=== PATIENT | female | born 1965 | race Caucasian/White ===

== ENCOUNTER 2021-01-11 06:33 | Day surgery (SDC) | payer BC ==
[~2021-01-11] VITALS: Ht 175.3 cm; Wt 76.6 kg
--- NOTE | ~2021-01-11 | HEMODYNAMI ---
PATIENT:CÉSAR PAULSON MEDICAL RECORD: [id number] : 65 LOCATION:D.CAT ADMISSION DATE: 01/11/21 Generatedon::24 Patient name: CÉSAR PAULSON Patient #: [id number] SSN: [id number] : 1965 Date of study: 01/11/2021 Page: Of Hemodynamic Procedure Report Patient Data Patient Demographics Procedure consent was obtained First Name: CÉSAR Gender: Female Last Name: KHURRAM : 1965 [facility] Initial: MEIR Age: 55 year(s) Patient #: [id number] Race: SSN: [id number] Additional ID: [id number] Contact details [address]: [address] [place] [address] State: [place] City: [place] Zip code: [address] Past Medical History Allergies: No known allergies Admission Admission Data Admission Date: 01/11/2021 Admission Time: 6:33 Arrival Date: 01/11/2021 Arrival Time: 0:00 Admit Source: Other Insurance Payor: Private health insurance [facility] #: [id number] Height (in.): 69 BSA: 1.94 (m2) Height (cm.): 175.26 BMI: 25.4 (kg/m2) Weight (lbs.): 172 Weight (kg.): 78.02 Lab Results Lab Result Date: 01/11/2021 Lab Result Time: 0:00 Biochemistry Name Units Result Min Max BUN mg/dl 18 --(---*)-- 7 18 Creatinine mg/dl 1.2 --(---*)-- 0.6 1.3 eGFR ml/min 49 *-(----)-- 90 120 NONAFRICAN CBC Name Units Result Min Max Hematocrit % 45.7 --(-*--)-- 42 54 Hemoglobin g/dl 15.7 --(--*-)-- 13.5 17.5 Procedure Procedure Types Cath Procedure Diagnostic Procedure [facility] w/Coronaries Sedation Charges Moderate Sedation 10-24 minutes Procedure Description Procedure Date Procedure Date: 01/11/2021 Procedure Start Time: 8:11 Procedure End Time: 8:22 Procedure Staff Name Function Thierno Jerome MD Performing Physician Consuelo Chen RN Nurse Susy Ware RT Monitor Eileen Broussard RT Scrub Procedure Data Cath Procedure Fluoroscopy Diagnostic fluoroscopy Total fluoroscopy Time: 2 time: 2 min min Diagnostic fluoroscopy Total fluoroscopy dose: 504 dose: 504 mGy mGy Contrast Material Contrast Material Type Amount (ml) Isovue 370 59 Entry Location Entry Primary Successful Side Size Upsize Upsize Entry Closure [place] ccessful Closure Location (Fr) 1 (Fr) 2 (Fr) Remarks Device Remarks Radial Right 6 Fr Mechanical artery Short Compression Estimated blood loss: 5 ml Diagnostic catheters Device Type Used For End Catheter Placement DIAGNOSTIC Hyden 110cm 5 Procedure Fr catheter ([id number]) Procedure Complications No complications Procedure Medications Medication Administration Route Dosage Oxygen etCO2 Nasal cannula 2 l/min Lidocaine 2% added to field 20 Heparin Flush Bag added to field 2 bags (1000units/500ml NS) 0.9% NaCl I.V. 100 ml/hr Radial Cocktail I.A. 1 syringe (Verapamil 2mg/Nitro 400mcg/Heparin 1500units) Versed I.V. 1 mg Fentanyl I.V. 50 mcg Versed I.V. 1 mg Fentanyl I.V. 50 mcg Versed I.V. 1 mg Hemodynamics Rest BSA: 1.94 (m2) HGB: 15.7 (g/dl) O2 Consumption: Estimated: 183.72 (ml/min) O2 Co nsumption indexed: Estimated:94.7 (ml/min/m) Heart Rate: 66 (bpm) Pressure Samples Time Site Value (mmHg) Purpose Heart Use Rate(bpm) 8:15 LV 93/0,8 Snapshot 70 Gradients Valve Time Site Site Mean SEP/DFP Peak To Heart Use 1 2 (mmHg) (sec/min) Peak Rate (mmHg) (bpm) Aortic 8:15 LV AO 70 Snapshots Pre Cath Intra NCS Post Cath Vital Signs Time Heart Resp SPO2 etCO2 NIBP Rhythm Pain Sedation Rate (ipm) (%) (mmHg) (mmHg) Status Level (bpm) 7:56:55 63 19 98 33.6 106/77(87) NSR 0 (11) 10(A) , No pain 8:01:01 64 15 98 37.3 105/70(88) NSR 0 (11) 10(A) , No pain 8:05:05 67 13 98 38.8 97/71(84) NSR 0 (11) 10(A) , No pain 8:10:04 61 11 98 41.8 Measuring NSR 0 (11) 9(A) , No pain 8:13:58 62 12 98 41.8 98/67(77) NSR 0 (11) 9(A) , No pain 8:18:03 66 14 94 34.3 90/56(75) NSR 0 (11) 9(A) , No pain 8:22:05 59 13 96 0 97/61(81) NSR 0 (11) 10(A) , No pain Medications Time Medication Route Dose Verified Delivered Reason Notes Effectiveness by by 7:56:12 Oxygen etCO2 2 l/min Thierno Buffie used for Nasal Justus Chen RN procedure cannula 7:56:19 Lidocaine 2% added 20ml Thierno Buffie used for to vial Justus Chen RN procedure field 7:56:25 Heparin Flush added 2 bags Thierno Buffie used for Bag to Justus Chen RN procedure (1000units/500ml field NS) 7:56:32 0.9% NaCl I.V. 100 Thierno Buffie Per ml/hr Justus Chen RN physician 8:06:15 Versed I.V. 1 mg Thierno Buffie for sedation Justus Chen RN 8:06:22 Fentanyl I.V. 50 mcg Thierno Buffie for sedation Justus Chen RN 8:14:09 Radial Cocktail I.A. 1 Thierno Thierno for (Verapamil syringe Justus Jerome MD vasodilation 2mg/Nitro 400mcg/Heparin 1500units) 8:14:26 Versed I.V. 1 mg Thierno Buffie for sedation Justus Chen RN 8:14:30 Fentanyl I.V. 50 mcg Thierno Buffie for sedation Justus Chen RN 8:18:52 Versed I.V. 1 mg Thierno Buffie for sedation Justus Chen RN Procedure Log Time Note 7:21:33 Informed consent obtained and on chart 7:32:18 Diagnostic Cath Status : Elective 7:32:28 Arrival Date: 01/11/2021 12:00:00 AM 7:32:29 Admit Source: Other 7:32:32 Insurance Payor : Private health insurance 7:32:52 Patient Height : 69 inches 7:32:54 Patient Weight : 172 lbs 7:33:05 Patient allergic to No known allergies 7:36:37 ACC Patient presents with Stable Angina CCS Anginal Class 2--Slight limitation of ordinary activity. 7:36:40 Procedure Status Elective Heart Cath (OP). 7:36:42 Time tracking: Regular hours (M-F 7:00 - 5:00) 7:36:47 Plan of Care:Hemodynamics will remain stable., Cardiac rhythm will remain stable., Comfort level will be maintained., Respiratory function will remain adequate., Patient/ family verbilizes understanding of procedure., Procedure tolerated without complication., Recovers from procedure without complications.. 7:36:59 H&P Date Dictated: 12/29/2020 Within 30 days and on chart.. 7:37:00 Pre-procedure instructions explained to patient. 7:37:01 Pre-op teaching completed and patient verbalized understanding. 7:37:03 Family in waiting room. 7:37:05 Patient NPO since Midnight. 7:37:12 Alarms reviewed by R. N. 7:37:12 Sharps counted by scrub and verified by R.N. 7:37:18 Lab results pending. 7:40:03 Lab Result : BUN 18 mg/dl 7:40:03 Lab Result : eGFR NONAFRICAN 49 ml/min 7:40:03 Lab Result : Creatinine 1.2 mg/dl 7:44:43 Consuelo Chen RN sent for patient. Start room use. 7:47:59 Patient received from Pre/Post Procedure Room to CCL 1 Alert and oriented. Tansferred to table in Supine position. 7:48:01 Warm blankets applied, and daina hugger turned on for patient comfort. 7:48:01 Correct patient and procedure confirmed by team. 7:48:02 ECG and BP/O2 sat monitors applied to patient. 7:55:58 Vital chart was started 7:56:12 Oxygen 2 l/min etCO2 Nasal cannula was administered by Consuelo Chen RN; used for procedure; Verbal order read back and verified. 7:56:19 Lidocaine 2% 20ml vial added to field was administered by Consuelo Chen RN; used for procedure; Verbal order read back and verified. 7:56:25 Heparin Flush Bag (1000units/500ml NS) 2 bags added to field was administered by Consuelo Chen RN; used for procedure; Verbal order read back and verified. 7:56:32 0.9% NaCl 100 ml/hr I.V. was administered by Consuelo Chen RN; Per physician; Verbal order read back and verified. 8:00:52 Baseline sample Acquired. 8:00:53 Full Disclosure recording started 8:00:56 Rhythm: sinus rhythm 8:01:27 Is the patient allergic to Iodine/contrast media? No. 8:01:29 Was the patient premedicated? Yes 8:01:30 Is patient on blood thinner?No 8:01:32 Patient diabetic? No. 8:01:34 If diabetic: On Metformin? N/A 8:01:37 ----Pre-sedation anethsthesia assessment.---- 8:01:42 Previous problem with sedation/anesthesia? No ? 8:01:43 Snore? Yes 8:01:45 Sleep apnea? No 8:01:46 Deviated septum? No 8:01:48 Opens mouth fully? Yes 8:01:51 Sticks out tongue? Yes 8:01:53 Airway obstruction? No ? 8:01:55 Dentures? No ? 8:02:00 Pre procedure: right dorsailis pedis pulse 2+ Normal; easily identifiable; not easily obliterated 8:02:02 Modified Koko's test Ulnar < 7 seconds 8:02:05 Patient pain scale 0/10 ?. 8:02:11 IV patent on arrival in left forearm with 0.9% NaCl at [facility]. 8:02:18 Right Radial & Right Groin area was prepped with chlora-prep and draped in sterile fashion 8:02:21 Use device set Radial Dx or PCI 8:02:22 ACIST Syringe (41855) opened to sterile field. 8:02:22 Medline Cath Pack ([id number]) opened to sterile field. 8:02:23 Bag Decanter () opened to sterile field. 8:02:24 ACIST Hand Control (11875) opened to sterile field. 8:02:25 ACIST Manifold (38584) opened to sterile field. 8:02:27 MBraPBJ Concierge Wrist Support ([id number]) opened to sterile field. 8:02:28 NEEDLE Cook 21G 4cm Radial (X60101) opened to sterile field. 8:02:29 EMERALD Guide Wire (570-396) opened to sterile field. 8:02:30 SHEATH 6FR RAIN (6771980) opened to sterile field. 8:03:13 Stress Test: no; N/A ? 8:03:33 Lab Result : Hemoglobin 15.7 g/dl 8:03:33 Lab Result : Hematocrit 45.7 % 8:04:57 Risk of Mortality: 0.1 8:04:59 Risk of blood transfusion: 0.1 8:05:02 Risk of MIGUEL: 0.7 8:05:09 --------ALL STOP TIME OUT------ 8:05:09 Final Timeout: patient, procedure, and site verified with staff and physician. All members of the team are in agreement. 8:05:11 Right Radial & Right Groin site verified by team. 8:05:14 Fire Safety Assessment: A--An alcohol-based skin anteseptic being used preoperatively., C--Open oxygen or nitrous oxide is being used., D--An ESU, laser, or fiber-optic light is being used. 8:05:18 Physical assessment completed. ASA score P 2 - A patient with mild systemic disease as per Thierno Jerome MD. 8:05:22 3a) 45-59 Moderately reduced kidney function. 8:05:25 Maximum allowable contrast dose (3.7 X eGFR X 0.75)136 ml. 8:05:29 Sedation plan: IV Moderate Sedation Medication:Versed, Fentanyl 8:06:15 Versed 1 mg I.V. was administered by Consuelo Chen RN; for sedation; Verbal order read back and verified. 8:06:22 Fentanyl 50 mcg I.V. was administered by Consuelo Chen RN; for sedation; Verbal order read back and verified. 8:10:40 Procedure started. 8:11:25 Local anesthetic to right radial artery with Lidocaine 2% by Thierno Jerome MD.INITIAL ACCESS ONLY 8:12:14 Zero performed for pressure channel P1 8:13:04 A 6 Fr Short sheath was inserted into the Right Radial artery 8:14:03 A DIAGNOSTIC Hyden 110cm 5 Fr catheter (119677) was advanced over the wire and used for Procedure. 8:14:09 Radial Cocktail (Verapamil 2mg/Nitro 400mcg/Heparin 1500units) 1 syringe I.A. was administered by Thierno Jerome MD; for vasodilation; Verbal order read back and verified. 8:14:26 Versed 1 mg I.V. was administered by Consuelo Chen RN; for sedation; Verbal order read back and verified. 8:14:30 Fentanyl 50 mcg I.V. was administered by Consuelo Chen RN; for sedation; Verbal order read back and verified. 8:14:34 LV gram done using RODRIGUEZ 8:14:42 Injector settings: Ml/sec: 5, Volume: 15, 8:15:22 LV hemodynamics recorded. 8:15:37 EF : 50 % 8:16:06 LCA angiography performed. 8:16:08 Injector settings: Ml/sec: 3, Volume: 6, 8:18:36 RCA angiography performed. 8:18:39 Injector settings: Ml/sec: 3, Volume: 6, 8:18:52 Versed 1 mg I.V. was administered by Consuelo Chen RN; for sedation; Verbal order read back and verified. 8:19:19 Catheter removed. 8:19:46 Sheath removed intact; hemostasis achieved with Mechanical Compression to the Right Radial artery. 8:19:48 Procedure ended.(Physican Out) 8:19:59 Fluoroscopy time 02.00 minutes. 8:20:00 ZEPHYR REGULAR TR BAND ([id number]) opened to sterile field. 8:20:03 Flurop Dose total: 504 8:20:03 Fluoroscopy dose: 504 mGy 8:20:13 Dose Area Product 77772 mGy/cm. 8:20:22 Contrast amount:Isovue 370 59ml. 8:20:26 Maximum allowable dose exceeded? No. 8:20:27 Sharps counted by scrub and verified by R.N. 8:20:30 [place] band inflated with 11cc of air. 8:20:32 Post Procedure Pulses reassessed and unchanged 8:20:35 Post procedure: right dorsailis pedis pulse 2+ Normal; easily identifiable; not easily obliterated. 8:20:39 Post-procedure physical assessment completed. ASA score P 2 - A patient with mild systemic disease as per Thierno Jerome MD. 8:21:44 Post procedure rhythm: unchanged. 8:21:46 Estimated blood loss: 5 ml 8:21:48 Post procedure instruction explained to patient.Patient verbalizes understanding. 8:21:49 Patient needs reinforcement of post procedure teaching. 8:22:04 Procedure type changed to Cath procedure, Diagnostic procedure, LHC, LHC w/Coronaries, Sedation Charges, Moderate Sedation 10-24 minutes 8:22:16 Procedure and supply charges have been captured, reviewed, submitted and are correct. 8:22:20 Procedure Complication : No complications 8:22:23 [facility] Findings: mild to moderate CAD (<70%) 8:22:24 Operative report dictated upon procedure completion. 8:22:25 See physician's report for complete and final results. 8:22:26 Report given to Pre/Post Procedure Room. 8:22:30 Patient transfered to Pre/Post Procedure Room with Stretcher. 8:22:32 Procedure ended. 8:22:32 Full Disclosure recording stopped 8:22:38 End room use (Document Last) 8:24:07 Vital chart was stopped Device Usage Item Name Manufacture Quantity Catalog Hospital Part Current Minima l Lot# / Number Charge Number Stock Stock Serial# Code ACIST Acist 1 25948 [id number] [id number] 20 Syringe Medical (91345) Systems Inc Medline Medline 1 [id number] 246475 16783 123416 5 Cath Pack ([id number]) Bag Microtek 1 063806 56334 911652 5 Decanter Medical Inc. () ACIST Hand Acist 1 98316 398305 192355 301592 5 Control Medical (98388) Systems Inc ACIST Acist 1 56583 217537 369314 721077 5 Manifold Medical (76983) Systems Inc MBrace Advanced 1 [id number] 640501 55567 971167 5 Wrist Vascular Support Dynamics ([id number]) NEEDLE Cook Cook Medical 1 [id number] 047074 215108 053315 5 21G 4cm Radial (N48694) EMERALD Cardinal 1 502-455 775607 737728 690904 5 Guide Wire [facility] (252-482) SHEATH 6FR Cardinal 1 [id number] 383009 2952680 610294 5 [facility] (0251006) DIAGNOSTIC Terumo 1 40-5878 206530 521770 650990 5 Hyden 110cm 5 Fr catheter (501922) ZEPHYR Cardinal 1 215129 727594 6616850 933872 5 REGULAR TR Health BAND (714328) Signature Audit [place] Stage Time Signature Unsigned Intra-Procedure 01/11/2021 Susy Ware 8:23:34 AM RT(R) Intra-Procedure 01/11/2021 Consuelo Chen RN 8:23:49 AM Intra-Procedure 01/11/2021 Thierno Jerome MD 8:24:05 AM [place] [address] [place] [address]
[2021-01-11] MEDS ORDERED: OMEPRAZOLE40 MG PO (06:46)
[2021-01-11] MEDS ORDERED: NORVASC5 MG PO (06:46)
[2021-01-11 07:04] VITALS: BP 133/77; BMI 24.9
[2021-01-11 07:28] LABS: ANION GAP 8.8 mmol/L (8-16); CARBON DIOXIDE 29.1 mmol/L (21.0-32.0); CHOL - HDL RATIO 4.7 ratio (2.3-4.1); CREATININE - SERUM 1.2 mg/dL (0.6-1.3); LDL-HDL RATIO 3.5 ratio (1.5-3.5); POTASSIUM - SERUM 3.9 mmol/L (3.5-5.1)
[2021-01-11 07:33] LABS: BASOPHILS 0.2 % (0-2); EOSINOPHILS 2.5 % (0-7); HEMATOCRIT 45.7 % (36.0-48.0); HEMOGLOBIN 15.7 g/dL (12-16); IMMATURE GRANULOCYTES 0.2 % (0-5); LYMPHOCYTE ABS# 1.32 10x3/uL (1.18-3.74); LYMPHOCYTES 25.4 % (15-50); MCH 31.8 pg (26.0-34.0); MCHC 34.4 g/dL (31.0-37.0); MCV 92.7 fL (80.0-100.0); MEAN PLATELET VOLUME 9.1 fL (7.4-10.4); MONOCYTES 12.3 % (2-11); NEUTROPHIL ABS# 3.09 10x3/uL (1.56-6.13); NEUTROPHILS 59.4 % (40-80); PLATELET COUNT 251 10x3/uL (130-400); RBC 4.93 10x6/uL (4.00-5.40); RDW 12.5 % (11.5-14.5); WBC 5.2 10x3/uL (4.8-10.8)
--- NOTE | 2021-01-11 08:31 | NUR ---
ARRIVES TO ROOM 10 VIA STRETCHER S/P HEART CATH, PLACED ON MONITORS ALARMS ON, SEE ANALYTICS SENIOR MANAGER, IV INFUSING PER ORDERS, DENIES PAIN OR NEEDS, CALL LIGHT WITHIN REACH, SPOUSE AT BEDSIDE, PT AND SPOUSE UPDATED ON PLAN OF CARE VERBALIZED UNDERSTANDING
--- NOTE | 2021-01-11 08:45 | NUR ---
RESTING QUIETLY , AROUSES EASILY TO VERBAL, VSS, SB NO ECTOPY, RIGHT WRIST WITH ZBAND IN PLACE C/D/I, RADIAL PULSE PALPABLE, CAP REFILL WNL, NO OOZING OR BLEEDING NOTED , MOVES ALL DIGITS, IV INFUSING PER ORDERS, DENIES PAIN OR NEED, SPOUSE AT BEDSIDE , CALL LIGHT WITHIN REACH, DENIES BATHROOM NEEDS AT PRESENT.
--- NOTE | 2021-01-11 09:00 | NUR ---
RESTING QUIETLY, VSS, SB, IV INFUSING PER ORDERS, SIPS OF SOFT DRINK GIVEN, RIGHT WRIST ZBAND IN PLACE WITHOUT PROBLEMS NO BLEEDING OR OOZING , RADIAL PULSE PALPABLE, CAP REFILL WNL , MOVES ALL DIGITS, DENIES BATHROOM NEEDS, IV INFUSING PER ORDERS, DENIES PAIN, PLAN OF CARE GIVEN AND TIME FRAME FOR PLANNED DISCHARGE, SPOUSES QUESTIONS AND CONCERNS ADDRESSED, CALL LIGHT WITHIN REACH
--- NOTE | 2021-01-11 09:30 | NUR ---
EYES OPEN AAOX3, VSS, SB , DENIES PAIN OR NEEDS, IV INFUSING PER ORDERS, RIGHT WRIST WITH ZBAND INPLACE RADIAL PULSE PALPABLE , CAP REFILL WNL, DENIES NAUSEA OR VOMITING, DENIES BATHROOM NEEDS, CALL LIGHT WITHIN REACH. SPOUSE AT BEDSIDE
--- NOTE | 2021-01-11 10:00 | NUR ---
EYES CLOSED AROUSE TO VERBAL, VSS, SB, IV INFUSING PER ORDERS, RIGHT WRIST WITH ZBAND INPLACE NO BLEEDING OR OOZING NOTED, RADIAL PULSE PALPABLE AND CAP REFILL WNL, 2CC AIR RELEASED FROM ZBAND HEMOSTASIS MAINTAINED, DENIES PAIN OR NEEDS, NO OTHER NEEDS AT THIS TIME, SEMI FOWLERS POSITION, CALL LIGHT WITHIN REACH
--- NOTE | 2021-01-11 10:15 | NUR ---
AAOX3, VSS, SB, RIGHT WRIST WITH ZBAND INPLACE NO OOZING OR BLEEDING RADIAL PULSE PALPABLE, CAP REFILL WNL , IV INFUSING PER ORDERS, DENIES PAIN OR NEEDS , DENIES BATHROOM NEEDS , PLAN OF CARE GIVEN WITH TIME FRAMES, CALL LIGHT WITHIN REACH
--- NOTE | 2021-01-11 10:30 | NUR ---
DR HANNA AT BEDSIDE TO DISCUSS RESULTS AND PLAN PT DTR AT BEDSIDE, 2CC AIR RELEASED FROM ZBAND NO OOZING OR BLEEDING RADIAL PULSE PALPABLE, CAP REFILL WNL, DENIES PAIN OR DISCOMFORT
--- NOTE | 2021-01-11 11:00 | NUR ---
PT SITTING SEMI STEVENS , VSS, SB NO ECTOPY, IV INFUSING PER ORDERS, RIGHT WRIST WITH ZBAND IN PLACE 3CC AIR REMOVED NO OOZING OR BLEEDING NOTED, RADIAL PULSE PALPABLE , CAP REFILL WNL, MOVES ALL DIGITS. IV INFUSING PER ORDERS, PT UP DATED ON PLAN FOR DR AYERS TO COME BY AND SEE PT PRIOR TO DISCHARGE, DENIES BATHROOM NEEDS, SANDWICH BOX OFFERED/DECLINES. CALL LIGHT WITHIN REACH
--- NOTE | 2021-01-11 11:20 | NUR ---
DR AYERS AT BEDSIDE
[2021-01-11 11:49] VITALS: Ht 175.3 cm; Wt 76.6 kg
--- NOTE | 2021-01-11 11:51 | NUR ---
DR HAYDEN AT BEDSIDE
--- NOTE | 2021-01-11 12:00 | NUR ---
PT IV REMOVED PER ORDERS CATHETER INTACT, 2X2 DRESSING APPLIED TO AREA. VSS, SB, RIGHT WRIST WITHOUT S/S OF BLEEDING OR OOZING RADIAL PULSE CAP REFILL WNL,MOVES ALL DIGITS, DENIES PAIN OR NEEDS, DISCHARGE INSTRUCTIONS REVIEWED WITH PT AND SPOUSE AND THEY VERBALIZED UNDERSTANDING , QUESTIONS AN CONCERNS ADDRESSED. PT AMBULATES DOWN HALLWAYL TO BATHROOM VOIDS WITHOUT DIFFICULTY.
--- NOTE | 2021-01-11 12:10 | NUR ---
PT TAKEN TO PRIVATE VEHICEL VIA WHEELCHAIR AND CARE OF HIS SPOUSE , PT HAS NO QUESTIONS OR CONCERNS AT TIME OF DISCHARGE, PT HAS NO PAIN OR NEEDS, RIGHT WRIST WITH NO BLEEDING OR OOZING RADIAL PULSE PALPABLE, CAP REFILL WNL , OPSITE TO AREA C/D/I
== END 2021-01-11 12:10 | disposition home or self-care (01) ==
LOC: EDSEX 06:33 → D.CATH 06:33
PROVIDERS: ATTEND Internal Medicine Cardiovascular Disease
DX: I21.4 Non-ST elevation (NSTEMI) myocardial infarction (principal); R07.9 Chest pain, unspecified; R06.00 Dyspnea, unspecified

== ENCOUNTER 2021-01-15 15:40 | Inpatient (IN) | payer BC ==
[~2021-01-15] VITALS: Ht 175.3 cm; Wt 82.5 kg
[~2021-01-15 15:40] MED LIST: NORVASC5 MG PO; OMEPRAZOLE40 MG PO
[2021-01-15] MEDS ORDERED: BAYER CHEWABLE81 MG PO (16:05)
[2021-01-15 17:38] LABS: BASOPHILS 0.1 % (0-2); EOSINOPHILS 0.4 % (0-7); HEMATOCRIT 47.4 % (42.0-54.0); IMMATURE GRANULOCYTES 0.3 % (0-5); LYMPHOCYTE ABS# 1.23 10x3/uL (1.32-3.57); LYMPHOCYTES 18.3 % (15-50); MCH 31.6 pg (26.0-34.0); MCHC 33.8 g/dL (31.0-37.0); MCV 93.7 fL (80.0-100.0); MONOCYTES 8.3 % (2-11); NEUTROPHIL ABS# 4.86 10x3/uL (1.78-5.38); NEUTROPHILS 72.6 % (40-80); PLATELET COUNT 290 10x3/uL (130-400); RBC 5.06 10x6/uL (4.20-6.10); RDW 12.3 % (11.5-14.5); WBC 6.7 10x3/uL (4.8-10.8)
[2021-01-15 17:40] LABS: BILIRUBIN NEGATIVE (NEGATIVE); KETONE NEGATIVE (NEGATIVE); NITRITE NEGATIVE (NEGATIVE); UROBILINOGEN NORMAL mg/dL (< 2)
[2021-01-15 17:42] LABS: APTT 28.7 SECONDS (22.8-39.4); INR 1.14 (0.85-1.17); PROTIME 13.5 SECONDS (11.6-15.0)
[2021-01-15 17:56] LABS: BILIRUBIN - TOTAL 0.45 mg/dL (0.2-1.3); PHOSPHOROUS 3.4 mg/dL (2.5-4.9); T4 THYROXIN - FREE 1.04 ng/dL (0.76-1.46); THYROID STIMULATING HORMONE 0.58 uIU/mL (0.36-3.74); URIC ACID 6.7 mg/dL (2.6-7.2)
[2021-01-16] VITALS (39 sets, daily range): BP systolic 91–126; BP diastolic 49–76; BMI 25.4
--- NOTE | 2021-01-16 09:38 | NUR ---
CVL AND ARTERIAL LINE BY ANESTHESIA ON ARRIVAL TO ROOM, MABLE'S AND STOCKING PLACED POST OP, RO.
[2021-01-16 16:51] LABS: HEMATOCRIT 39.1 % (42.0-54.0); HEMOGLOBIN 13.3 g/dL (13.5-17.5); LYMPHOCYTE ABS# 1.86 10x3/uL (1.32-3.57); MCH 31.7 pg (26.0-34.0); MCV 93.3 fL (80.0-100.0); MEAN PLATELET VOLUME 9.2 fL (7.4-10.4); NEUTROPHIL ABS# 19.71 10x3/uL (1.78-5.38); PLATELET COUNT 223 10x3/uL (130-400); RBC 4.19 10x6/uL (4.20-6.10); RDW 12.3 % (11.5-14.5); WBC 23.2 10x3/uL (4.8-10.8)
[2021-01-16 17:25] LABS: EOSINOPHILS 1 % (0-7); LYMPHOCYTES 11 % (15-50); MONOCYTES 1 % (2-11); NEUTROPHILS 87 % (40-80); PLATELET ESTIMATE NORMAL
[2021-01-16 17:29] LABS: INR 1.36 (0.85-1.17); PROTIME 15.5 SECONDS (11.6-15.0)
[2021-01-16 17:30] LABS: APTT 30.3 SECONDS (22.8-39.4)
--- NOTE | 2021-01-16 18:35 | NUR ---
PLACED PT ON CPAP/PS FOR 15 MIN TRIAL WILL EXTUBATE PER ORDERS IF ACCEPTABLE PARAMETERS MET AT END
--- NOTE | 2021-01-16 18:49 | NUR ---
PT EXTUBATED AND PLACED ON 4 L NC. PT POSITIONED FOR COMFORT WILL CONTINUE TO MONITOR.
[2021-01-17] VITALS (56 sets, daily range): BP systolic 95–138; BP diastolic 58–92; Ht 175.3 cm; Wt 82.5 kg
[2021-01-17 05:31] LABS: BASOPHILS 0.1 % (0-2); EOSINOPHILS 0 % (0-7); HEMATOCRIT 34.7 % (42.0-54.0); HEMOGLOBIN 11.5 g/dL (13.5-17.5); IMMATURE GRANULOCYTES 0.4 % (0-5); LYMPHOCYTE ABS# 0.93 10x3/uL (1.32-3.57); LYMPHOCYTES 6.5 % (15-50); MCH 31.2 pg (26.0-34.0); MCHC 33.1 g/dL (31.0-37.0); MEAN PLATELET VOLUME 9.5 fL (7.4-10.4); MONOCYTES 10.9 % (2-11); NEUTROPHIL ABS# 11.68 10x3/uL (1.78-5.38); NEUTROPHILS 82.1 % (40-80); PLATELET COUNT 230 10x3/uL (130-400); RBC 3.69 10x6/uL (4.20-6.10); RDW 12.7 % (11.5-14.5)
[2021-01-17 05:32] LABS: WBC 14.2 10x3/uL (4.8-10.8)
[2021-01-17 06:30] LABS: ALBUMIN 2.2 g/dL (3.4-5.0); ALKALINE PHOSPHATASE 34 U/L (30-120); ALT (SGPT) 19 U/L (10-68); BILIRUBIN - TOTAL 0.43 mg/dL (0.2-1.3); CALC OSMOLALITY 292 mosm/kg (275-300); CARBON DIOXIDE 24.1 mmol/L (21.0-32.0); CHLORIDE - SERUM 111 mmol/L (98-107); CREATININE - SERUM 0.9 mg/dL (0.6-1.3); GLUCOSE 133 mg/dL (74-106); POTASSIUM - SERUM 4.4 mmol/L (3.5-5.1); PROTEIN - SERUM 4.5 g/dL (6.4-8.2); SODIUM 146 mmol/L (136-145); UREA NITROGEN 13 mg/dL (7-18); eGFR NON AFRICAN AMERICAN > 90 mL/min (90-120)
[2021-01-17 06:32] LABS: CALCIUM 6.6 mg/dL (8.5-10.1)
--- NOTE | 2021-01-17 07:29 | NUR ---
CRITICAL CALCIUM OF 6.[address] AYERS, ORDER FOR ABG RECEIVED FOR IONOZED CALCIUM. RESULTS OF 1.[address] AYERS. NO OTHER ORDERS RECEIVED.
--- NOTE | 2021-01-17 09:57 | NUR ---
A LINE AND FRANCIS DCD PER PROTOCOL
--- NOTE | 2021-01-17 10:28 | NUR ---
PRAVASTATIN CALLED TO [facility] PER DR SIM
--- NOTE | 2021-01-17 10:51 | OP ---
PATIENT NAME: CÉSAR PAULSON MEDICAL RECORD: [id number] :65 LOCATION:D.CVI D.CV03 ADMISSION DATE:01/16/21 SURGEON: ERNESTO AYERS MD DATE OF OPERATION: 01/16/2021 SURGEON: Ernesto Ayers MD PROCEDURES PERFORMED: 1. Coronary artery bypass graft times 5 (left internal mammary artery to LAD, radial artery from qzwmk-ap-smrccr marginal, and reverse saphenous vein graft from rnfuz-ys-ptmak intermedius, rkuos-ri-suptgzajz descending artery sequenced onto posterolateral branch of right coronary artery). 2. Open harvest left radial artery. 3. Endoscopic saphenous vein harvest. PREOPERATIVE DIAGNOSES: Coronary artery disease with unstable angina and myocardial infarction. POSTOPERATIVE DIAGNOSES: Coronary artery disease with unstable angina and myocardial infarction. ANESTHESIA: General endotracheal anesthesia. ESTIMATED BLOOD LOSS: Total cardiopulmonary bypass with Cell Saver retransfusion. COMPLICATIONS: None. SPECIMENS: None. CONDITION: Stable. DISPOSITION: CV ICU. OPERATIVE FINDINGS: 1. Normal transesophageal echocardiography before and after cardiopulmonary bypass. 2. Unexpectedly larger and fatty heart in a relatively thin patient. 3. Good quality left radial artery consistent with the patient's size, good Doppler flow after anastomosis and after reversal of heparin. 4. Good quality greater saphenous vein, right lower extremity. The larger portion was used for the ramus intermedius graft. 5. Good quality left internal mammary artery to the LAD was a 2.0 mm vessel with severe disease including posterior plaque at the site of anastomosis and distally. 6. Ramus intermedius 2.0 mm. 7. Posterior descending artery 2.0 mm at proximal plaque, posterolateral branch of right coronary artery 1.5 mm with plaque at the RCA bifurcation. OPERATIVE INDICATION: Coronary artery disease, myocardial infarction. DESCRIPTION OF PROCEDURE: The patient was brought to the operating suite. General anesthesia was obtained. The patient was prepped and draped. Greater saphenous vein was harvested endoscopically from the right lower extremity. Side branches were divided with electrocautery. The vessel was ligated OPERATIVE REPORT [id number] CÉSAR PAULSON proximally and distally and removed. Side branches were tied. Leg was later irrigated and closed in 2 layers. Left radial artery was harvested with an open incision over the radial artery. Subcutaneous veins were clipped or divided with electrocautery. The vessel was exposed first at the wrist and then working in a proximal direction. The muscle layers were retracted. Fascia was incised. The side branches were clipped and divided. Papaverine was used for vasodilatation. The vessel was ligated proximally and distally, cannulated and perfused with a papaverine blood solution and the stumps were oversewn with Prolene. Cardizem was given intravenously during radial artery harvest. Arm was later closed in 2 layers at the conclusion of the case was carefully wrapped with an elastic wrap. Median sternotomy incision was made. Subcutaneous tissue was divided with electrocautery. Sternum was divided with a saw. The left hemisternum was elevated. Left pleural cavity was entered. Left internal mammary was taken down as a pedicle graft. Sternal retractor was placed. Pericardium was opened. Heparin was given. The aorta was cannulated. Dual-stage venous cannula was inserted. Internal mammary was clipped distally and made ready for anastomosis. Activated clotting time was appropriately elevated and the patient was placed on cardiopulmonary bypass. Sites for distal anastomosis were selected. The patient was cooled. Antegrade cardioplegic cannula was inserted. Crossclamp was placed. Cardioplegia was given antegrade and this was repeated at 15- to 20-minute intervals including down the completed vein grafts. Distal anastomosis was performed in standard technique. Proximal anastomosis with single cross-clamp technique with a 3.5 mm punch for the radial artery graft and a 4.0 for the 2 vein grafts. The aortic root was de-aired. The vein grafts were tied down. Proximal and distal anastomotic sites inspected for bleeding. Single 6-0 in the right proximal and distal anastomoses were hemostatic. The patient resumed a spontaneous rhythm, but was bradycardic, was paced atrially and once fully rewarmed, weaned from cardiopulmonary bypass was stable. The patient was decannulated. Cannulation sites were oversewn. Thorough irrigation was undertaken. Graft lay appropriately. Good Doppler signals were noted after protamine. Drains were placed in the mediastinum and left pleural cavity. Atrioventricular pacing wires which had been placed earlier were secured. Pericardial fat was loosely reapproximated in the midline. Sternum was closed with wires. Fascia was closed. Subcutaneous tissue was closed. Skin was closed. Dermabond was placed. The needle and sponge counts were reported as correct and the patient was taken to the ICU in stable condition. TRANSINT:[id number] Voice Confirmation ID: [id number] DOCUMENT ID: [id number] OPERATIVE REPORT [id number] KHURRAMCÉSARERNESTO HARRIS MD at 1051 CC: NANCY HANNA M.D. and LENA AMBROSE [phone] DICTATION DATE: 01/16/21 1531 FINANCIAL RESERVE CLERK: 01/16/21 2329 ADM IN [place] [id number] [place] [id number]
--- NOTE | 2021-01-17 12:48 | NUR ---
PT ASSISTED TO BED
[2021-01-18] VITALS (24 sets, daily range): BP systolic 84–128; BP diastolic 58–83
[2021-01-18 05:26] LABS: BASOPHILS 0.1 % (0-2); EOSINOPHILS 0.1 % (0-7); HEMATOCRIT 34.3 % (42.0-54.0); HEMOGLOBIN 11.3 g/dL (13.5-17.5); IMMATURE GRANULOCYTES 0.3 % (0-5); LYMPHOCYTE ABS# 1.03 10x3/uL (1.32-3.57); LYMPHOCYTES 5.9 % (15-50); MCH 31.5 pg (26.0-34.0); MCHC 32.9 g/dL (31.0-37.0); MCV 95.5 fL (80.0-100.0); MEAN PLATELET VOLUME 9.2 fL (7.4-10.4); MONOCYTES 9.5 % (2-11); NEUTROPHIL ABS# 14.64 10x3/uL (1.78-5.38); NEUTROPHILS 84.1 % (40-80); PLATELET COUNT 185 10x3/uL (130-400); RBC 3.59 10x6/uL (4.20-6.10); RDW 12.7 % (11.5-14.5); WBC 17.4 10x3/uL (4.8-10.8)
[2021-01-18 06:08] LABS: ALBUMIN 2.5 g/dL (3.4-5.0); ALKALINE PHOSPHATASE 44 U/L (30-120); ALT (SGPT) 19 U/L (10-68); BILIRUBIN - TOTAL 0.54 mg/dL (0.2-1.3); CALC OSMOLALITY 270 mosm/kg (275-300); CARBON DIOXIDE 28.2 mmol/L (21.0-32.0); CHLORIDE - SERUM 103 mmol/L (98-107); GLUCOSE 131 mg/dL (74-106); POTASSIUM - SERUM 4.6 mmol/L (3.5-5.1); PROTEIN - SERUM 5.5 g/dL (6.4-8.2); SODIUM 134 mmol/L (136-145); UREA NITROGEN 14 mg/dL (7-18); eGFR NON AFRICAN AMERICAN 82 mL/min (90-120)
[2021-01-18 06:12] LABS: CALCIUM 8.3 mg/dL (8.5-10.1)
--- NOTE | 2021-01-18 06:48 | NUR ---
Shift summary: No change in patient status. Pain controlled with prn Percocet. Dressing changed to incision sites as ordered. Sutures intact to chest tubes, drain, wires. Skin well approximated at incision sites, wolf intact, no sign of infection. Up to chair with one-person assist this morning. Utilizing incentive spirometer.
--- NOTE | 2021-01-18 15:52 | NUR ---
Pt resting in bed and denies any needs, call light in reach, bed in low position.
[2021-01-19] VITALS (24 sets, daily range): BP systolic 84–116; BP diastolic 54–74
[2021-01-19 04:08] LABS: BASOPHILS 0.1 % (0-2); EOSINOPHILS 0.2 % (0-7); HEMATOCRIT 29.3 % (42.0-54.0); HEMOGLOBIN 9.7 g/dL (13.5-17.5); IMMATURE GRANULOCYTES 0.3 % (0-5); LYMPHOCYTE ABS# 0.81 10x3/uL (1.32-3.57); LYMPHOCYTES 5.9 % (15-50); MCH 31.4 pg (26.0-34.0); MCHC 33.1 g/dL (31.0-37.0); MCV 94.8 fL (80.0-100.0); MONOCYTES 8.3 % (2-11); NEUTROPHILS 85.2 % (40-80); PLATELET COUNT 160 10x3/uL (130-400); RBC 3.09 10x6/uL (4.20-6.10); RDW 12.6 % (11.5-14.5); WBC 13.7 10x3/uL (4.8-10.8)
[2021-01-19 04:24] LABS: ALBUMIN 2.2 g/dL (3.4-5.0); ALKALINE PHOSPHATASE 40 U/L (30-120); ALT (SGPT) 16 U/L (10-68); BILIRUBIN - TOTAL 0.45 mg/dL (0.2-1.3); CALC OSMOLALITY 276 mosm/kg (275-300); CALCIUM 8.4 mg/dL (8.5-10.1); CHLORIDE - SERUM 102 mmol/L (98-107); CREATININE - SERUM 0.9 mg/dL (0.6-1.3); GLUCOSE 115 mg/dL (74-106); POTASSIUM - SERUM 4.2 mmol/L (3.5-5.1); PROTEIN - SERUM 5.4 g/dL (6.4-8.2); SODIUM 137 mmol/L (136-145); UREA NITROGEN 17 mg/dL (7-18); eGFR NON AFRICAN AMERICAN > 90 mL/min (90-120)
--- NOTE | 2021-01-19 05:07 | NUR ---
PATIENT WITHOUT S/S OF DISTRESS THROUGHOUT SHIFT. ONE DOSE OF PRN PAIN MED ADMINISTED. ASYMPTOMATIC HYPOTENSION NOTED, IMPROVED WHEN PATIENT WAKES. NO OTHER ISSUES, WILL CONTINUE TO MONITOR. Tres FAN RN
[2021-01-19] MEDS ORDERED: PERCOCET 5-3251 TAB PO (11:07)
[2021-01-19] MEDS ORDERED: LOPRESSOR25 MG PO (12:01)
[2021-01-19] MEDS ORDERED: CARDIZEM30 MG PO (12:02)
--- NOTE | 2021-01-19 12:27 | NUR ---
Nutrition Follow-up: POD 3 CABG. Good appetite. Ate majority of breakfast this AM. Denies N/V, chewing/swallowing difficulties. -BM; +flatus. Diet: Cardiac PO intake: 50-100% Wt: 180.7# (01/19); 190.6# (01/17) Labs noted: Glu 115, Ca 8.4, Alb 2.2 Meds noted: Protonix, Senokot, Colace -Encourage PO intake and honor food preferences within diet restrictions. -RD follow-up: 01/22
--- NOTE | 2021-01-19 20:00 | NUR ---
REC'D REP FROM OFF GOING NURSE AND CARE ASSUMED. SIGNIFICANT OTHER AT BESIDE. INITIAL ASSESSMENT COMPLETED AN RECORDED PER FLOW SHEET. ALL DRSGs INTACT, C&D, EXCEPT LEFT INNER FOREARM HARVEST SITE AND MIDSTERNAL INCISION, WHICH ARE BOTH OPEN TO AIR. PPPX4. NSR PER MONITOR. DENIES ANY DISCOMFORT OR PAIN. WILL MONITOR AND CONT WITH CURRENT PLAN OF CARE.
[2021-01-20] VITALS (12 sets, daily range): BP systolic 98–120; BP diastolic 63–72
[2021-01-20 04:04] LABS: BASOPHILS 0 % (0-2); EOSINOPHILS 0.6 % (0-7); HEMATOCRIT 29.2 % (42.0-54.0); HEMOGLOBIN 9.6 g/dL (13.5-17.5); IMMATURE GRANULOCYTES 0.4 % (0-5); LYMPHOCYTES 6.2 % (15-50); MCH 30.9 pg (26.0-34.0); MCHC 32.9 g/dL (31.0-37.0); MCV 93.9 fL (80.0-100.0); MEAN PLATELET VOLUME 8.9 fL (7.4-10.4); MONOCYTES 8.5 % (2-11); NEUTROPHIL ABS# 9.59 10x3/uL (1.78-5.38); NEUTROPHILS 84.3 % (40-80); PLATELET COUNT 174 10x3/uL (130-400); RBC 3.11 10x6/uL (4.20-6.10); RDW 12.6 % (11.5-14.5); WBC 11.4 10x3/uL (4.8-10.8)
[2021-01-20 04:13] LABS: ALBUMIN 2.1 g/dL (3.4-5.0); ALKALINE PHOSPHATASE 42 U/L (30-120); ALT (SGPT) 14 U/L (10-68); BILIRUBIN - TOTAL 0.42 mg/dL (0.2-1.3); CALC OSMOLALITY 278 mosm/kg (275-300); CALCIUM 8.5 mg/dL (8.5-10.1); CARBON DIOXIDE 29.4 mmol/L (21.0-32.0); CHLORIDE - SERUM 102 mmol/L (98-107); CREATININE - SERUM 0.9 mg/dL (0.6-1.3); GLUCOSE 108 mg/dL (74-106); PROTEIN - SERUM 5.3 g/dL (6.4-8.2); SODIUM 138 mmol/L (136-145); UREA NITROGEN 17 mg/dL (7-18); eGFR NON AFRICAN AMERICAN > 90 mL/min (90-120)
--- NOTE | 2021-01-20 14:11 | MORECARE ---
CASE MANAGEMENT DISCHARGE SUMMARY PATIENT: CÉSAR PAULSON UNIT: [id number] ADM DATE: 01/16/21 AGE: 55 : 65 SEX: M ROOM/BED: [facility] AUTHOR: AGGIE,DOC PHYSICIAN: REFERRING PHYSICIAN: ÓSCAR AYERS MD DATE OF SERVICE: 01/20/21 Case Management Discharge Planning Summary CT Patient Name: CÉSAR PAULSON Attending MD : ÓSCAR BYERS Medical Record: [id number] Encounter : [id number] Facility : [address] [place] [address] Medical Admission Date : 01/16/2021 5:02 Center Discharge Date : [address] [place] [address] Date of : DC Plan ID : [id number] Age/Sex/Martia : 55/ M/M Printed on : 01/20/21 14:09 CT DCP Review Details Anticipated D/C: 01/20/2021 Expected LOS : 4 Case Status : INITIATED - Initial Reviewe: [id number] - Hiral Cunningham Initial Review: 01/20/2021 Planned Disposi: 01 - Home or Self Care (Routine Discharge) Final Discharge: - Final Reviewer : : Final Review : DCP Focus Questions & Answers DCP Screen High Risk Factors: None Walking limitation: Patient stated self rated No walking limitation present? Age: 45 - 64 Prior living environment: Lives with others Disability ranking: Grade 1: No significant disability DCP Evaluation Patient's ability to cope with chronic illness d. No chronic illness Would patient like to participate in any Care Not applicable Coordination programs (if applicable): Mental health screen: No mental health history DCP Re-evaluation Would patient like to participate in any Care Not applicable Coordination programs (if applicable): [facility] CÉSAR PAULSON MR#: [id number] /Age/Sex/Harmpg7-Vkd-79 /55/M /M Attending Physician Name: JAZZMINE AYERS [id number] [facility][id number] [facility] All edits/amendments must be made on the electronic document DICTATION DATE: 01/20/21 140 CERTIFIED PROSTHETIST: DANE 01/20/21 140 RPT#: [id number] DC DATE: STATUS: ADM IN [facility] [address] [place] [address] END OF REPORT
--- NOTE | 2021-01-20 14:23 | MORECARE ---
CASE MANAGEMENT DISCHARGE SUMMARY PATIENT: CÉSAR PAULSON UNIT: [id number] ADM DATE: 01/16/21 AGE: 55 : 65 SEX: M ROOM/BED: [facility] AUTHOR: AGGIE,DOC PHYSICIAN: REFERRING PHYSICIAN: ÓSCAR AYERS MD DATE OF SERVICE: 01/20/21 Case Management Discharge Planning Summary CT Patient Name: CÉSAR PAULSON Attending MD : ÓSCAR BYERS Medical Record: [id number] Encounter : [id number] Facility : [address] [place] [address] Medical Admission Date : 01/16/2021 5:02 Center Discharge Date : [address] [place] [address] Date of : DC Plan ID : [id number] Age/Sex/Martia : 55/ M/M Printed on : 01/20/21 14:22 CT DCP Review Details Anticipated D/C: 01/20/2021 Expected LOS : 4 Case Status : INITIATED - Initial Reviewe: [id number] - Hiral Cunningham Initial Review: 01/20/2021 Planned Disposi: 01 - Home or Self Care (Routine Discharge) Final Discharge: - Final Reviewer : : Final Review : Comments CT Entered Date Type Reviewer 01/20/21 14:13 CT Discharge Planning Hiral Cunningham Comment CM received discharge order. Patient is eating his lunch at the side of the bed. He is on room air. I spoke with CIELO Umaña and she states he ambulated in the herring without oxygen and his oxygen saturation was between 92 and 100%. He states his PCP is Dr. Abraham Daugherty in [place]. He has 3-4 steps to get into his home and no steps inside. He is completely independent with all ADL's and AIDL's. CM discussed availability of home health or DME, denies needs at this time. Home today with spouse. DCP Focus Questions & Answers DCP Screen High Risk Factors: None Walking limitation: Patient stated self rated No walking limitation present? Age: 45 - 64 Prior living environment: Lives with others Disability ranking: Grade 1: No significant disability DCP Evaluation Patient's ability to cope with chronic illness d. No chronic illness Patient gives permission to discuss discharge Ruth Paulson - plans with: (name, relationship and number) Patient's current cognitive status: *Oriented to person, place, situation, time and present Patient and/or caregiver agree upon recommended Yes discharge plan? Physical Status: Independent with ADL's Does the patient have the ability to pay for or Yes attain post discharge needs / services? Living Arrangements: Home with Spouse/Significant Other Is there a likelihood that the patient will No require additional services to return to the preadmission environment? Equipment needed for post hospitalization: None Baseline cognitive status: *Oriented to person, place, situation, time and present Patient with capacity for self-care or can be Yes cared for in same environment as prior to hospitalization? Results of this evaluation have been discussed Patient with: Results of this evaluation have been discussed Spouse with: Preadmission facility can/cannot provide post Can - at same level of care as preadmission hospital level of care needs: Physical environment modification needed / No anticipated for discharge: Does Patient have transportation to get home and Yes to follow-up medical appointments when discharged from the hospital? Would patient like to participate in any Care Not applicable Coordination programs (if applicable): Equipment in use: None Mental health screen: No mental health history Abuse/Neglect: None DCP Re-evaluation Would patient like to participate in any Care Not applicable Coordination programs (if applicable): [facility] CÉSAR PAULSON MR#: [id number] /Age/Sex/Yovqno7-Ywx-47 /55/M /M Attending Physician Name: JAZZMINE AYERS [id number] Patient Account:[id number] [facility] Page -1 of 1 All edits/amendments must be made on the electronic document DICTATION DATE: 01/20/211421 SALESFORCE CONSULTANT: DANE 01/20/211421 RPT#: [id number] DC DATE: STATUS: ADM IN [facility] [address] [place] [address] END OF REPORT
--- NOTE | 2021-01-20 15:35 | NUR ---
0730-RECIEVED AWAKE AND ALERT-ASSISTED OUT OF BED TO REST ROOM-PROVIDED PT WITH TOILETRY-AND ASSIST FOR PERSONAL CARE-O2 AT 2L --SR ON MONITOR-TELEMETRY PLACED ON PT 0930-PHYSICAL THERAPY AT BEDSIDE -AMBULATED ON ROOOM AIR-TOLERATED WELL AT BEDSIDE- 1030-DR AYERS AT BEDSIDE-SPOKE TO SAME REGARDING DISCHARGE HOME-PT ON BED-[place] DRAIN AND PACER WIRES REMOVED BY DR AYERS-PT DIRECTED TO REMAIN IN BED FOR 20MIN-SR ON MONITOR WITH NO CHANGE TO AMPLITUDE 1120-AMBULATING IN ROOM WITHOUR DIFFICULTY-REVIEWED PT MEDICATION WITH BOTH DR AYERS AND ICU NURSE- AT BEDSIDE-REPORTED WILL REMAIN IN [place]-10MIN FROM HOSPITAL FOR Friday-DIRECTED TO REURN TO DR AYERS OFFICE FRIDAY FOR REASSESSMENT OF CARDIAC AND ANTIHYPERTENSIVE MEDICATION-CURRENT DIRECTED ASA/ PROLOSIC OVER COUNTER AND PAIN MEDICINE NEEDED--DIRECTED TO FOLLOW UP WITH PRIMARY PHYSICIAN-FIRST AVAILABLE WITHIN 2 WKS-PACKET GIVEN WITH INSTRUCTIONS-PRACTICED ASSIST FOR PT TO STAND WITH LEAST STRESS TO CHEST INCISION-DIRECTED SIGNS TO LOOK FOR -PROVIDED WITH NUMBER TO UNIT FOR QUESTION AND DR AYERS NUMBER [id number] DISCHARGED ON ROOM AIR HOME WITH
--- NOTE | 2021-01-21 14:51 | NUR ---
REENTERED TO DOCUMENT-CREAT [facility] STS PAPERWORK
--- NOTE | 2021-01-22 10:38 | MORECARE ---
CASE MANAGEMENT DISCHARGE SUMMARY PATIENT: CÉSAR PAULSON UNIT: [id number] ADM DATE: 01/16/21 AGE: 55 : 65 SEX: M ROOM/BED: [facility] AUTHOR: AGGIE,DOC PHYSICIAN: REFERRING PHYSICIAN: ÓSCAR AYERS MD DATE OF SERVICE: 01/22/21 Case Management Discharge Planning Summary CT Patient Name: CÉSAR PAULSON Attending MD : ÓSCAR BYERS Medical Record: [id number] Encounter : [id number] Facility : [address] [place] [address] Medical Admission Date : 01/16/2021 5:02 Center Discharge Date : 01/20/[address] [place] [address] Date of : DC Plan ID : [id number] Age/Sex/Martia : 55/ M/M Printed on : 01/22/21 10:36 CT DCP Review Details Anticipated D/C: 01/20/2021 Expected LOS : 4 Case Status : INITIATED - Initial Reviewe: [id number] - Hiral Cunningham Initial Review: 01/20/2021 Planned Disposi: 01 - Home or Self Care (Routine Discharge) Final Discharge: - Final Reviewer : : Final Review : Comments CT Entered Date Type Reviewer 01/20/21 14:13 CT Discharge Planning Hiral Cunnnigham Comment CM received discharge order. Patient is eating his lunch at the side of the bed. He is on room air. I spoke with CIELO Umaña and she states he ambulated in the herring without oxygen and his oxygen saturation was between 92 and 100%. He states his PCP is Dr. Abraham Daugherty in [place]. He has 3-4 steps to get into his home and no steps inside. He is completely independent with all ADL's and AIDL's. CM discussed availability of home health or DME, denies needs at this time. Home today with spouse. DCP Focus Questions & Answers DCP Screen High Risk Factors: None Walking limitation: Patient stated self rated No walking limitation present? Age: 45 - 64 Prior living environment: Lives with others Disability ranking: Grade 1: No significant disability DCP Evaluation Patient and/or caregiver agree upon recommended Yes discharge plan? Patient's current cognitive status: *Oriented to person, place, situation, time and present Patient gives permission to discuss discharge Ruth Paulson - plans with: (name, relationship and number) Patient's ability to cope with chronic illness d. No chronic illness Does the patient have the ability to pay for or Yes attain post discharge needs / services? Physical Status: Independent with ADL's Equipment needed for post hospitalization: None Is there a likelihood that the patient will No require additional services to return to the preadmission environment? Living Arrangements: Home with Spouse/Significant Other Results of this evaluation have been discussed Spouse with: Results of this evaluation have been discussed Patient with: Patient with capacity for self-care or can be Yes cared for in same environment as prior to hospitalization? Baseline cognitive status: *Oriented to person, place, situation, time and present Physical environment modification needed / No anticipated for discharge: Preadmission facility can/cannot provide post Can - at same level of care as preadmission hospital level of care needs: Does Patient have transportation to get home and Yes to follow-up medical appointments when discharged from the hospital? Would patient like to participate in any Care Not applicable Coordination programs (if applicable): Equipment in use: None Mental health screen: No mental health history Abuse/Neglect: None DCP Re-evaluation Would patient like to participate in any Care Not applicable Coordination programs (if applicable): [facility] CÉSAR PAULSON MR#: [id number] /Age/Sex/Qjditg9-Icl-52 /55/M /M Attending Physician Name: JAZZMINE AYERS [id number] Patient Account:[id number] [facility] Page -1 of 1 All edits/amendments must be made on the electronic document DICTATION DATE: 01/22/21 1036 OLD COIN DEALER: DANE 01/22/21 1036 RPT#: [id number] DC DATE:01/20/21 STATUS: DIS IN [facility] [address] [place] [address] END OF REPORT
--- NOTE | 2021-01-22 10:43 | TEE ---
PATIENT:CÉSAR PAULSON MEDICAL RECORD: [id number] LOCATION:[place] [address] AGE OF PATIENT: 55 ADMISSION DATE: 01/16/21 SEX: M REFERRING PHYSICIAN: INTERPRETING PHYSICIAN: JOSHUA SANTIAGO MD TRANSESOPHAGEAL ECHOCARDIOGRAM Date: 01/16/21 SERENE CHARGE Y INDICATIONS: CABG PREMEDICATIONS: PATIENT'S RESPONSE PROCEDURE DOPPLER MEASUREMENTS: LVIT LA PA RA LVOT RVOT Asc. Ao AV Gradient Peak AV Mean AV Area MV Gradient Peak MV Mean MV Area INTERPRETATION: Doppler: 2-D: COLOR FLOW DOPPLER NORMAL SALINE STUDY: MISCELLANOUS: DIAGNOSIS: PLAN: Revising Clerk:3 Dr. Claudio Scholarship Counselor: Fernando OLSON COMMENTS: DATE OF SERVICE: FINDINGS: Preoperatively, normal LV wall motion, normal wall thickening. EF greater than or equal to 55%. Aortic valve is tricuspid with good valve excursion. Left atrium appears normal. Mitral valve appears normal. Trivial MR. Postoperatively, normal LV wall motion, normal wall thickening. EF is 55%. Aortic valve is tricuspid. No evidence of stenosis by Doppler interrogation. Left atrium appears normal. Mitral valve appears normal. Trivial MR. TRANSESOPHAGEAL ECHOCARDIOGRAM REPORT [id number] CÉSAR PAULSON TRANSINT:[id number] Voice Confirmation ID: [id number] DOCUMENT ID: [id number] at 1043 CC: [id number] DICTATION DATE: 01/18/21 1527 EDGE WORKER: 01/18/21 1538 DIS IN 01/20/21 [place] [address] [place] [address]
== END 2021-01-20 13:30 | disposition home or self-care (01) | DRG 236 ==
LOC: D.SDCHOLD 01-16 05:02 → D.CVICU 01-16 05:02 → D.SDCHOLD 01-16 07:30 → EDSEX 01-16 07:30 → D.SDCHOLD 01-16 09:00 → D.CVICU 01-16 15:19
PROVIDERS: Family Medicine; ADMIT Thoracic Surgery (Cardiothoracic Vascular Surgery); ATTEND Thoracic Surgery (Cardiothoracic Vascular Surgery)
PROC: 021209W Bypass Coronary Artery, Three Arteries from Aorta with Autologous Venous Tissue, Open Approach (ICD-10-PCS; 2021-01-16)
PROC: 021 Heart and Great Vessels, Bypass (ICD-10-PCS; 2021-01-16)
PROC: 06BP4ZZ Excision of Right Saphenous Vein, Percutaneous Endoscopic Approach (ICD-10-PCS; 2021-01-16)
PROC: 02100Z9 Bypass Coronary Artery, One Artery from Left Internal Mammary, Open Approach (ICD-10-PCS; principal; 2021-01-16 09:00)
DX: I21.9 Acute myocardial infarction, unspecified (principal); D62 Acute posthemorrhagic anemia; I25.110 Atherosclerotic heart disease of native coronary artery with unstable angina pectoris; K21.9 Gastro-esophageal reflux disease without esophagitis; I10 Essential (primary) hypertension; I51.5 Myocardial degeneration; R00.0 Tachycardia, unspecified

== ENCOUNTER → 2021-02-14 09:08 | Outpatient (CLI) | payer BC ==
[2021-01-17 17:19] VITALS: BMI 28.1
[~2021-02-14 09:08] MED LIST changes: +BAYER CHEWABLE81 MG PO; +CARDIZEM30 MG PO; +LOPRESSOR25 MG PO; +PERCOCET 5-3251 TAB PO
[2021-02-14 09:56] LABS: BASOPHILS 0.3 % (0-2); EOSINOPHILS 4.8 % (0-7); HEMATOCRIT 39.8 % (42.0-54.0); HEMOGLOBIN 12.9 g/dL (13.5-17.5); IMMATURE GRANULOCYTES 0.3 % (0-5); LYMPHOCYTE ABS# 1.18 10x3/uL (1.32-3.57); LYMPHOCYTES 18.8 % (15-50); MCH 30.6 pg (26.0-34.0); MCHC 32.4 g/dL (31.0-37.0); MCV 94.3 fL (80.0-100.0); MEAN PLATELET VOLUME 9.2 fL (7.4-10.4); MONOCYTES 13.4 % (2-11); NEUTROPHIL ABS# 3.92 10x3/uL (1.78-5.38); NEUTROPHILS 62.4 % (40-80); RBC 4.22 10x6/uL (4.20-6.10); RDW 12.7 % (11.5-14.5); WBC 6.3 10x3/uL (4.8-10.8)
[2021-02-14 10:07] LABS: PLATELET COUNT 291 10x3/uL (130-400)
[2021-02-14 10:09] LABS: ANION GAP 9.1 mmol/L (8-16); CALCIUM 9.3 mg/dL (8.5-10.1); CARBON DIOXIDE 30.2 mmol/L (21.0-32.0); CREATININE - SERUM 1.1 mg/dL (0.6-1.3); POTASSIUM - SERUM 4.3 mmol/L (3.5-5.1)
== END | disposition home or self-care (01) ==
LOC: D.RAD 09:08
PROVIDERS: ATTEND Thoracic Surgery (Cardiothoracic Vascular Surgery)
DX: Z48.812 Encounter for surgical aftercare following surgery on the circulatory system (principal)